=== PATIENT | female | born 1950 | race African-American/Black ===

== ENCOUNTER 2016-09-12 15:30 | Emergency (ER) | payer MEDICARE ==
[~2016-09-12] VITALS: Ht 160 cm; Wt 63.5 kg
[~2016-09-12 15:30] MED LIST: ASPI325T4 PO; HYDR50TA6 PO; LEVO25TA4 PO; LISI-334 PO; METF10002 PO; METO50TA2 PO
[2016-09-12] MEDS ORDERED: IPRATRPIUM/ALBUTEROL 0.5/2.5MG 3 ML NEBU. NEB ONE ×2 (16:15→16:45)
[2016-09-12 16:24] LABS: BASO % 1 % (0-3); EOS % 7 % (0-3); HEMATOCRIT 39.2 % (36.0-47.0); LYMPH % 32 % (24-48); MEAN CORPUSCULAR HEMOGLOBIN 30 pg (25-35); MEAN CORPUSCULAR HGB CONC 33 g/dL (31-37); MEAN CORPUSCULAR VOLUME 91 fL (79-100); MONO % 18 % (0-9); NEUT % 43 % (31-73); PLATELET COUNT 308 x10^3/uL (140-400); RED CELL DISTRIBUTION WIDTH 14.1 % (11.5-14.5); WHITE BLOOD COUNT 6.1 x10^3/uL (4.0-11.0)
[2016-09-12 16:34] LABS: CALCIUM 8.5 mg/dL (8.5-10.1); CREATININE 0.7 mg/dL (0.6-1.0); GFR 101.3; POTASSIUM 3.7 mmol/L (3.5-5.1)
--- NOTE | 2016-09-12 16:35 | EKG ---
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
[2016-09-12 16:40] LABS: ALBUMIN 3.8 g/dL (3.4-5.0); TOTAL BILIRUBIN 0.2 mg/dL (0.2-1.0); TOTAL PROTEIN 7.6 g/dL (6.4-8.2)
--- NOTE | 2016-09-12 17:34 | ED.ADGEN ---
Past Medical History Past Medical History: Cancer, Diabetes-Type II, Hypertension, Hypothyroid, Other Additional Past Medical Histor: " MAY HAVE SAID I HAD ANXIETY" Past Surgical History: Cancer Surgery, Hysterectomy, Other Additional Past Surgical Histo: ca sx r kid, metal plate neck Additional Information: 0.5 TO 0.75 PPD Alcohol Use: None Drug Use: None Adult General Chief Complaint Chief Complaint: CHEST PAIN HPI HPI Patient is a 65 year old woman, history of hypertension, hypothyroidism, right kidney removal for cancer, who presents to the emergency department with a complaint of cough, rhinorrhea, nasal congestion or sore throat over the past several days, with development of shortness of breath over the past several hours. Patient noted be wheezing upon arrival, saturation is 96-98% on room air , respiratory rate is 20 and unlabored. Chest soreness with coughing, none without. Denies any headache, any nausea or vomiting, any weakness in this or tingling, any injuries, any sick contacts or exposures. She does not receive flu vaccinations area no swelling extremities, no recent travel or surgery. Patient does smoke cigarettes daily. Denies any drugs or alcohol. Review of Systems Review of Systems Constitutional: Denies fever or chills. [] Eyes: Denies change in visual acuity. [] HENT: Nasal congestion, mild sore throat. [] Respiratory: Cough, productive of yellow sputum, shortness of breath. Cardiovascular: Coughing, with chest soreness, no edema. GI: Denies abdominal pain, nausea, vomiting, bloody stools or diarrhea. [] : Denies dysuria. [] Musculoskeletal: Denies back pain or joint pain. [] Integument: Denies rash. [] Neurologic: Denies headache, focal weakness or sensory changes. [] Endocrine: Denies polyuria or polydipsia. [] Lymphatic: Denies swollen glands. [] Psychiatric: Denies depression or anxiety. [] Current Medications Current Medications Current Medications Medications (Trade) Dose Ordered Sig/Jaswant Start Time Stop Time Status Last Admin Dose Admin Albuterol/ Ipratropium (Duoneb) 3 ml 1X ONCE 09/12/16 16:45 09/12/16 16:46 DC 09/12/16 16:50 3 ML Hydrochlorothiazide (Hydrodiuril) 25 mg 1X ONCE 09/12/16 19:00 09/12/16 19:01 DC 09/12/16 18:37 25 MG Prednisone (Prednisone) 40 mg 1X ONCE 09/12/16 18:00 09/12/16 18:01 DC 09/12/16 18:37 40 MG Allergies Allergies Allergies Coded Allergies Type Severity Reaction Last Updated Verified No Known Drug Allergies 03/16/14 No Physical Exam Physical Exam Constitutional: Well developed, well nourished, no acute distress, non-toxic appearance. [] HENT: Normocephalic, atraumatic, bilateral external ears normal, oropharynx moist, no oral exudates, patient with turbinate swelling bilaterally, clear rhinorrhea with post nasal drip. Eyes: PERRLA, EOMI, conjunctiva normal, no discharge. [] Neck: Normal range of motion, no tenderness, supple, no stridor. [] Cardiovascular:Heart rate regular rhythm, no murmur , S1, S2, no rubs or gallops. [] Lungs & Thorax: Patient with coarse breath sounds and mild scattered wheezing noted throughout. No rales. Patient tenderness palpation along the lateral ribs , which she states is where her pain occurs when she coughs. Abdomen: Bowel sounds normal, soft, no tenderness, no rebound, rigidity, no guarding, no masses, no pulsatile masses. [] Skin: Warm, dry, no erythema, no rash. [] Back: No tenderness, no CVA tenderness. [] Extremities: No tenderness, no cyanosis, no clubbing, ROM intact, no edema. [] Negative Homans sign. Neurologic: Alert and oriented X 3, normal motor function, normal sensory function, no focal deficits noted. [] Psychologic: Affect normal, judgement normal, mood normal. [] Current Patient Data Vital Signs Vital Signs Date Time Temp Pulse Resp B/P Pulse Ox O2 Delivery O2 Flow Rate FiO2 09/12/16 19:00 82 20 164/93 99 Room Air 09/12/16 16:02 98 98.0 Lab Values Laboratory Tests Test 09/12/16 16:13 09/12/16 16:58 White Blood Count 6.1x10^3/uL (4.0-11.0) Red Blood Count 4.30x10^6/uL (3.50-5.40) Hemoglobin 13.0g/dL (12.0-15.5) Hematocrit 39.2% (36.0-47.0) Mean Corpuscular Volume 91fL (79-100) Mean Corpuscular Hemoglobin 30pg (25-35) Mean Corpuscular Hemoglobin Concent 33g/dL (31-37) Red Cell Distribution Width 14.1% (11.5-14.5) Platelet Count 308x10^3/uL (140-400) Neutrophils (%) (Auto) 43% (31-73) Lymphocytes (%) (Auto) 32% (24-48) Monocytes (%) (Auto) 18% (0-9) H Eosinophils (%) (Auto) 7% (0-3) H Basophils (%) (Auto) 1% (0-3) Neutrophils # (Auto) 2.7x10^3uL (1.8-7.7) Lymphocytes # (Auto) 2.0x10^3/uL (1.0-4.8) Monocytes # (Auto) 1.1x10^3/uL (0.0-1.1) Eosinophils # (Auto) 0.4x10^3/uL (0.0-0.7) Basophils # (Auto) 0.0x10^3/uL (0.0-0.2) Sodium Level 144mmol/L (136-145) Potassium Level 3.7mmol/L (3.5-5.1) Chloride Level 106mmol/L (98-107) Carbon Dioxide Level 28mmol/L (21-32) Anion Gap 10 (6-14) Blood Urea Nitrogen 13mg/dL (7-20) Creatinine 0.7mg/dL (0.6-1.0) Estimated GFR (Cockcroft-Gault) 101.3 BUN/Creatinine Ratio 19 (6-20) Glucose Level 100mg/dL (70-99) H Lactic Acid Level 1.4mmol/L (0.4-2.0) Calcium Level 8.5mg/dL (8.5-10.1) Total Bilirubin 0.2mg/dL (0.2-1.0) Aspartate Amino Transferase (AST) 21U/L (15-37) Alanine Aminotransferase (ALT) 22U/L (14-59) Alkaline Phosphatase 80U/L (46-116) Troponin I Quantitative < 0.017ng/mL (0.000-0.055) XZ-Lae-F-Type Natriuretic Peptide 48pg/mL (0-124) Total Protein 7.6g/dL (6.4-8.2) Albumin 3.8g/dL (3.4-5.0) Albumin/Globulin Ratio 1.0 (1.0-1.7) Influenza Type A Antigen Negative (NEGATIVE) Influenza Type B Antigen Negative (NEGATIVE) Laboratory Tests 09/12/16 16:13 Laboratory Tests 09/12/16 16:13 EKG EKG EC: Sinus rhythm, heart rate 75 beats minute, upright axis, QTC of 409, UT 178, QRS of 86, patient with mild baseline artifact noted, no ST elevations or depressions, no evidence of acute ST abnormalities. As interpreted by me. Radiology/Procedures Radiology/Procedures Chest x-ray: One view: Normal cardiopulmonary silhouette, no significant infiltrates, effusions, soft tissue or bony abnormalities identified. As interpreted by me. [] Course & Med Decision Making Course & Med Decision Making Pertinent Labs and Imaging studies reviewed. (See chart for details) Patient's history and evaluation is most consistent with a viral infection, and underlying COPD. Patient received respiratory treatment in the ED with a DuoNeb , on reevaluation states she is feeling "much much better", she also received steroids in the ED. Telemetry studies are reveal acutely concerning findings, chest x-ray and ECG were unremarkable. Patient had an ambulatory trial in the emergency room, oxygen saturation was between 97 and 98% on room air, respiratory rate unlabored, patient without a difficulty with ambulation. I did discuss findings as above with patient, she states that she is ready to be discharged home, and we'll follow-up with a primary care provider. I did give patient prescription for Tessalon Perles, prednisone, albuterol inhaler, patient to follow-up with her primary care provider, also discussed smoking cessation, and return to the ED for concerning symptoms. Patient voiced understanding and agreement with plan, discharged home in stable condition with plan as above. Dragon Disclaimer Dragon Disclaimer This electronic medical record was generated, in whole or in part, using a voice recognition dictation system. Departure Impression: Primary Impression: Viral infection Additional Impression: COPD (chronic obstructive pulmonary disease) Disposition: HOME, SELF-CARE Condition: IMPROVED Scripts Fluticasone Propionate (Flonase Allergy Relief)9.9 Ml [place].susp2 Sprays NS DAILY #1 BOTTLE Prov:TONI JIMENEZ DO 09/12/16 Benzonatate (Tessalon Perle)100 Mg [id number] Mg PO TID PRN COUGH #14 CAP Prov:OLYA JIMENEZKARLA Calhoun DO 09/12/16 Prednisone 20 Mg Tablet2 Tab PO DAILY #8 TAB Prov:TONI JIMENEZ DO 09/12/16 Albuterol Sulfate (Proair Hfa Inhaler)8.5 Gm Hfa.aer.ad1 Puff INH PRN Q6HRS PRN SHORTNESS OF BREATH #1 INHALER Ref 0 Prov:TONI JIMENEZ DO 09/12/16 Problem Qualifiers Additional Impression: COPD (chronic obstructive pulmonary disease) COPD type: unspecified COPD Qualified Code: J44.9 - Chronic obstructive pulmonary disease, unspecified TONI JIMENEZ DO Sep 12, 2016 17:34
[2016-09-12 17:44] LABS: OBC FLU VALID
[2016-09-12] MEDS ORDERED: PREDNISONE 20 MG TABLET PO ONE (18:00)
[2016-09-12] MEDS ORDERED: FLUT9.9S NS (18:44)
[2016-09-12] MEDS ORDERED: PRED20TA PO (18:44)
[2016-09-12] MEDS ORDERED: BENZ100C PO (18:44)
[2016-09-12] MEDS ORDERED: PROAIR HFA8.5 GM INH (18:44)
[2016-09-12 19:00] VITALS: BP 164/93
[2016-09-12] MEDS ORDERED: HYDROCHLOROTHIAZIDE 25 MG TABLET PO ONE (19:00)
--- NOTE | 2016-09-13 09:23 | RAD ---
AP chest. History: Short of air, cough AP view was taken of the chest. Lungs are free of infiltrates. Heart is normal in size without heart failure. There is no effusion. Impression: 1. No acute chest disease.
== END 2016-09-12 19:09 | disposition home or self-care (01) ==
LOC: ER 15:30
DX: B34.9 Viral infection, unspecified (principal); J44.9 Chronic obstructive pulmonary disease, unspecified; I10 Essential (primary) hypertension; F17.210 Nicotine dependence, cigarettes, uncomplicated; E03.9 Hypothyroidism, unspecified; E11.9 Type 2 diabetes mellitus without complications
CPT/HCPCS: 36415; 71010; 80053; 83605; 83880; 84484; 85027; 87804; 93005; 94250; 94640; 99285; J7512; J7620

== ENCOUNTER 2017-04-06 22:11 | Emergency (ER) | payer MEDICARE ==
[~2017-04-06] VITALS: Ht 160 cm; Wt 63.0 kg
[~2017-04-06 22:11] MED LIST changes: -ASPI325T4 PO; +ASPI325T8 PO; +BENZ100C PO; +FLUT9.9S NS; +METF-620 PO; -METF10002 PO; +PRED20TA PO; +PROAIR HFA8.5 GM INH
[2017-04-06 22:37] LABS: BASO # 0.1 x10^3/uL (0.0-0.2); BASO % 1 % (0-3); EOS % 1 % (0-3); HEMATOCRIT 41.9 % (36.0-47.0); HEMOGLOBIN 14.1 g/dL (12.0-15.5); LYMPH # 3.1 x10^3/uL (1.0-4.8); LYMPH % 23 % (24-48); MEAN CORPUSCULAR HEMOGLOBIN 30 pg (25-35); MEAN CORPUSCULAR HGB CONC 34 g/dL (31-37); MEAN CORPUSCULAR VOLUME 89 fL (79-100); MONO % 6 % (0-9); NEUT % 71 % (31-73); PLATELET COUNT 427 x10^3/uL (140-400); RED CELL DISTRIBUTION WIDTH 13.7 % (11.5-14.5); WHITE BLOOD COUNT 13.6 x10^3/uL (4.0-11.0)
[2017-04-06] MEDS ORDERED: IV NORMAL SALINE 1000ML BAG 1,000 ML IV ONE (22:45)
[2017-04-06 22:51] LABS: CALCIUM 9.2 mg/dL (8.5-10.1); GFR 66.9
[2017-04-06 22:57] LABS: TOTAL BILIRUBIN 0.3 mg/dL (0.2-1.0); TOTAL PROTEIN 8.2 g/dL (6.4-8.2)
--- NOTE | 2017-04-06 23:47 | PHYS DOC ---
Past Medical History Past Medical History: Cancer, Diabetes-Type II, Hypertension, Hypothyroid, Other Additional Past Medical Histor: " MAY HAVE SAID I HAD ANXIETY" Past Surgical History: Cancer Surgery, Hysterectomy, Other Additional Past Surgical Histo: ca sx r kid, metal plate neck Alcohol Use: None Drug Use: None Adult General Chief Complaint Chief Complaint: RAPID HEART RATE HPI HPI Patient is a 66 year old female who presents with heart palpitations. About 1 hour prior to arrival the patient reports onset of racing heartbeat with substernal chest tightness. She felt short of breath. EMS found heart rate to be in 170s with EKG showing SVT. They administered adenosine 6 mg & she converted to sinus tachycardia. She states her chest pain has resolved, no longer short of breath. 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 She denies history of CAD, CHF. She smokes cigarettes daily. She denies use of drugs or alcohol. Review of Systems Review of Systems Constitutional: Denies fever or chills Eyes: Denies change in visual acuity HENT: Denies nasal congestion or sore throat Respiratory: Denies cough, reports shortness of breath Cardiovascular: Reports chest pain & palpitations, denies edema GI: Denies abdominal pain, nausea, vomiting, bloody stools or diarrhea Musculoskeletal: Denies back pain or joint pain Integument: Denies rash or skin lesions Neurologic: Denies headache, focal weakness or sensory changes Current Medications Current Medications Current Medications Medications (Trade) Dose Ordered Sig/Jaswant Start Time Stop Time Status Last Admin Dose Admin Sodium Chloride 1,000 ml @ 1,000 mls/hr 1X ONCE 04/06/17 22:45 04/06/17 23:44 DC 04/06/17 22:46 1,000 MLS/HR Allergies Allergies Allergies Coded Allergies Type Severity Reaction Last Updated Verified No Known Drug Allergies 03/16/14 No Physical Exam Physical Exam Constitutional: Well developed, well nourished, no acute distress, non-toxic appearance. HENT: Normocephalic, atraumatic, bilateral external ears normal, oropharynx moist, nose normal. Eyes: conjunctiva normal, no discharge. Neck: supple, no stridor. Cardiovascular: RRR, no murmurs, no edema. Lungs & Thorax: LCTAB, no wheezing, no respiratory distress. Abdomen: soft, nontender, nondistended. Skin: Warm, dry, no erythema, no rash. Back: No tenderness. Extremities: No tenderness, no edema. no calf tenderness or swelling. Neurologic: Alert and oriented X 3, no focal deficits noted. Psychologic: Affect normal, judgement normal, mood normal. Current Patient Data Vital Signs Vital Signs Date Time Temp Pulse Resp B/P (MAP) Pulse Ox O2 Delivery O2 Flow Rate FiO2 04/07/17 00:00 84 20 122/84 (97) 98 Room Air 04/06/17 22:11 98.0 98.0 Lab Values Laboratory Tests Test 04/06/17 22:25 White Blood Count 13.6 x10^3/uL (4.0-11.0) H Red Blood Count 4.70 x10^6/uL (3.50-5.40) Hemoglobin 14.1 g/dL (12.0-15.5) Hematocrit 41.9 % (36.0-47.0) Mean Corpuscular Volume 89 fL (79-100) Mean Corpuscular Hemoglobin 30 pg (25-35) Mean Corpuscular Hemoglobin Concent 34 g/dL (31-37) Red Cell Distribution Width 13.7 % (11.5-14.5) Platelet Count 427 x10^3/uL (140-400) H Neutrophils (%) (Auto) 71 % (31-73) Lymphocytes (%) (Auto) 23 % (24-48) L Monocytes (%) (Auto) 6 % (0-9) Eosinophils (%) (Auto) 1 % (0-3) Basophils (%) (Auto) 1 % (0-3) Neutrophils # (Auto) 9.6 x10^3uL (1.8-7.7) H Lymphocytes # (Auto) 3.1 x10^3/uL (1.0-4.8) Monocytes # (Auto) 0.8 x10^3/uL (0.0-1.1) Eosinophils # (Auto) 0.1 x10^3/uL (0.0-0.7) Basophils # (Auto) 0.1 x10^3/uL (0.0-0.2) Sodium Level 140 mmol/L (136-145) Potassium Level 4.0 mmol/L (3.5-5.1) Chloride Level 101 mmol/L (98-107) Carbon Dioxide Level 28 mmol/L (21-32) Anion Gap 11 (6-14) Blood Urea Nitrogen 17 mg/dL (7-20) Creatinine 1.0 mg/dL (0.6-1.0) Estimated GFR (Cockcroft-Gault) 66.9 BUN/Creatinine Ratio 17 (6-20) Glucose Level 204 mg/dL (70-99) H Calcium Level 9.2 mg/dL (8.5-10.1) Total Bilirubin 0.3 mg/dL (0.2-1.0) Aspartate Amino Transferase (AST) 17 U/L (15-37) Alanine Aminotransferase (ALT) 20 U/L (14-59) Alkaline Phosphatase 97 U/L (46-116) Troponin I Quantitative < 0.017 ng/mL (0.000-0.055) AT-Dib-M-Type Natriuretic Peptide 40 pg/mL (0-124) Total Protein 8.2 g/dL (6.4-8.2) Albumin 4.0 g/dL (3.4-5.0) Albumin/Globulin Ratio 1.0 (1.0-1.7) Laboratory Tests 04/06/17 22:25 Laboratory Tests 04/06/17 22:25 EKG EKG Interpreted by me: Normal sinus rhythm rate 100, no acute ST or T wave changes, normal intervals, no ectopy, some artifact [] repeat EKG interpreted by me: 0056: NSR rate 84, no acute ST/T wave changes, normal intervals, no ectopy. Radiology/Procedures Radiology/Procedures Chest x-ray: Interpreted by me: No cardiomegaly, no infiltrate, no pneumothorax , diaphragmatic flattening [] Course & Med Decision Making Course & Med Decision Making Pertinent Labs and Imaging studies reviewed. (See chart for details) The patient presents in sinus rhythm after medical management of SVT in the field. She is hemodynamically stable - initially slightly tachycardic improving to normal rate with administration of IV fluids. Obtained labs, EKG, CXR. No recurrence of palpitations or tachycardia. She felt better, no serious findings on evaluation here. I actually discharged her with plan for outpatient cardiology follow up. She walked to the waiting room & became more symptomatic, reportedly heart rate was 140 though we did not obtain EKG until she returned to her room. She did not feel well enough to go home. Did not require additional treatment for arrhythmia, heart rate in 90s when I reassessed her. Recommend admission for further cardiac evaluation. She agrees with plan of care. Discussed with Dr. Costello who agrees to admit to inpatient status, cardiology consult to Dr. Bauer. The patient is admitted in stable condition. Dragon Disclaimer Dragon Disclaimer This electronic medical record was generated, in whole or in part, using a voice recognition dictation system. Departure Departure Impression: Primary Impression: SVT (supraventricular tachycardia) Additional Impression: Palpitation Disposition: ADMITTED INPATIENT Admitting Physician: Lorie Costello Condition: IMPROVED Referrals: XAVI RUSSELL MD (PCP) VANCE BAUER MD Patient Instructions: Supraventricular Tachycardia, [id number] Additional Instructions: You were seen in the emergency department today after being treated for SVT. Your symptoms improved in your labs showed no specific abnormality other than high glucose of 200. Please follow-up with cardiology within one week. Return to the emergency department for severe chest pain or shortness of breath, rapid heart rate, any otherwise worsening condition. Problem Qualifiers CLARA SADLER MD Apr 06, 2017 23:47
[2017-04-07] VITALS: BP 122/84
--- NOTE | 2017-04-07 08:12 | RAD ---
Portable chest, 04/06/2017: History: Chest discomfort Comparison is made to a study from 09/12/2016. The heart size and pulmonary vascularity are normal. No pulmonary infiltrates are seen. There is no evidence of pleural fluid. A surgical plate and screws is evident in the lower cervical spine. IMPRESSION: No acute cardiopulmonary abnormality is detected.
--- NOTE | 2017-04-07 09:02 | EKG ---
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
== END 2017-04-07 00:13 | disposition home or self-care (01) ==
LOC: ER 22:11
DX: I47.1 Supraventricular tachycardia (principal); E11.9 Type 2 diabetes mellitus without complications; I10 Essential (primary) hypertension; E03.9 Hypothyroidism, unspecified; F17.210 Nicotine dependence, cigarettes, uncomplicated; Z90.710 Acquired absence of both cervix and uterus
CPT/HCPCS: 36415; 71010; 80053; 83880; 84484; 85027; 93005; 96360; 96361; 99285; J7030